=== PATIENT | male | born 1980 | race African-American/Black ===

== ENCOUNTER 2024-02-25 20:45 | Emergency (ER) | payer MEDICAID, SELFPAY ==
--- NOTE | 2024-02-25 20:45 | RT.EKG_ITS ---
APPROVED REPORT Exam: Resting ECG Reason for Exam: elevated bp, abd pain Patient Location: E HR:103 bpm ECG Measurements Heart Rate 103 AXIS ID 151 P 22 QRSd 90 QRS 47 QT 344 T 41 QTc 450 Conclusion Sinus tachycardia...rate> 99 Probable left atrial enlargement...P >50mS, <-0.10mV V1
[2024-02-25 20:50] VITALS: BP 146/112; PULSE 112; RESP 16; TEMP 37.4; O2SAT 98
--- NOTE | 2024-02-25 21:00 | DI.RAD_ITS ---
Exam(s) XR CHEST 2V PA LATERAL EXAM: XR CHEST 2V PA LATERAL CLINICAL HISTORY: cough TECHNIQUE: 2D digital imaging was performed. Two views. COMPARISON: No exams were available for comparison FINDINGS: HEART: Normal size. Aorta: Not dilated. PULMONARY VASCULATURE: Normal. MEDIASTINUM: Unremarkable. LUNGS: Clear. PLEURAL SPACE: No pleural effusion or pneumothorax. BONE:Unremarkable for age. SOFT TISSUES: Unremarkable. IMPRESSION: No acute abnormality. DATA REPOSITORY: RADIATION DOSE DELIVERED:
[2024-02-25 21:01] VITALS: RESP 22
--- NOTE | 2024-02-25 21:05 | W.ED.GENAD ---
Discharge Plan Disposition Patient Disposition: Home Condition: Stable Discharge Details Chief Complaint: GenMedical Clinical Impression: Insomnia, Nausea, Hyponatremia ED Provider: Karel Cleveland Home Meds and New Rx's Prescriptions: No Action No Known Home Meds Discharge Instructions Additional Instructions: Your sodium level is low from drinking beer frequently and also not have enough salt in your diet Limit alcohol use to 2 drinks daily and also try to increase your dietary intake of salt. I placed on a follow-up list to try and see your primary care provider soon as possible. Can also try calling local clinics to try to get a primary care provider If you feel more ill have persistent vomiting or severe weakness return to the emergency department for reevaluation HPI General Mode of arrival: ambulatory. Date/Time Provider Initiated Documentation: 02/25/24 20:50. Limitations to Documentation: no limitations. Information obtained by: patient. History of Present Illness 43 year old M presents to the emergency department with the chief complaint of Nasal congestion, described as moderate, Patient started experiencing this year(s) (3) and it has been constant. No relieving factors improve symptom(s), No exacerbating factors reported . Patient notes cough and nausea/vomiting; denies chest pain, fever/chills and shortness of breath. Patient did receive the following treatments prior to arrival, none Related Data Home Medications ?Medication ?Instructions ?Recorded ?Confirmed Unknown [No Known Home Meds] 02/25/24 02/25/24 Allergies Allergy/AdvReac Type Severity Reaction Status Date / Time No Known Allergies Allergy Unverified 02/25/24 21:12 General Stated Complaint: GenMedical DEEPA: 3 Review of Systems All systems reviewed & are unremarkable except as noted in HPI and below Constitutional Constitutional: Denies chills, Reports fatigue and Denies fever(s) Cardiovascular Cardiovascular: Denies chest pain and Denies dyspnea Respiratory Respiratory: Reports cough and Denies dyspnea Gastrointestinal Gastrointestinal: Denies abdominal pain and Reports nausea Endocrine Endocrine: Reports fatigue Exam Const General: no acute distress Orientation: alert [facility] [place] Head: normal to inspection Ears: external ears normal General nose exam: external nose normal Mouth: moist mucous membranes Eyes General: appearance normal, both eyes and all related structures Neck Neck: normal visual inspection Resp Effort & Inspection: normal respiratory effort and able to speak in complete sentences Auscultation: clear to auscultation bilaterally Cardio Rate: regular rate Rhythm: regular rhythm Heart Sounds: no murmurs GI Palpation: soft and nontender Skin General skin exam: no rashes or lesions noted Neuro General: patient alert and patient oriented x3 Extrem General: normal to inspection Psych Mental Status: mental status grossly normal Course Vital Signs Vital signs: Vital Signs Temperature 37.4 C 02/25/24 20:50 Pulse 112 H 02/25/24 20:50 Respiratory Rate 16 02/25/24 20:50 Blood Pressure 146/112 H 02/25/24 20:50 Pulse Oximetry 98 02/25/24 20:50 Temperature 37.4 C 02/25/24 20:50 Temperature Source Tympanic 02/25/24 20:50 Pulse 112 H 02/25/24 20:50 Respiratory Rate 16 02/25/24 20:50 Blood Pressure 146/112 H 02/25/24 20:50 Blood Pressure Position Supine 02/25/24 20:50 Pulse Oximetry 98 02/25/24 20:50 Oxygen Delivery Method Room Air 02/25/24 20:50 Oxygen Flow Rate 0 02/25/24 20:50 Pain Level 0 02/25/24 20:50 Medical Decision Making 33-year-old male who recently moved to the area and has a chronic history of smoking and alcohol abuse, comes in with complaints of years of difficulty sleeping, chronic fatigue and feeling like he always has to cough or clear his throat. Is unclear what brought him to the hospital today as he says these are all chronic issues. He denies any abdominal pain, he does know he had chronic nausea as well. Denies any chest pain or difficulty breathing, no fevers, no headaches. He is alert and oriented on arrival speaking clearly. He has clear lung sounds a soft nontender abdomen. No focal neurological deficits. I am unsure why the patient came here tonight to be evaluated the symptoms been going on for 2 years but given his complaints of nausea and fatigue and his cough will check a CBC and CMP along with alcohol level as he does state he has been drinking today. I suspect his insomnia and other symptoms could be due to his alcohol abuse. I suspect his cough could be a smoker's cough but will get chest x-ray to evaluate for possible infiltrate Patient feels better, labs show a sodium of 122 he notes that he drinks beer pretty much daily suspect beer potomania. For admission but he declines, I did recommend that he strongly refrain from drinking if he can or limit his alcohol to 2 drinks daily, I also recommended increasing his dietary salt intake. He will follow-up with his primary care provider and return precautions given Differential Diagnosis Differential Diagnosis: Alcohol abuse, electrolyte abnormality, smoker's cough Imaging Data Radiologic Study: Attestation: I personally reviewed and interpreted this imaging study as follows: Imaging: CT Scan My impression: no acute findings Lab Data Lab results reviewed: Yes I reviewed the patient's lab results. ECG Data Attestation: I personally reviewed and interpreted this ECG (s) as follows: Prior ECG tracings: not available for review Interpretation: sinus tachycardia rate of 103 pr 151 no stemi Quality:SDOH Health Related Social Needs: No Data to Display PFSH All Active Problems (Updated 02/25/24 @ 22:01 by Karel Cleveland MD) Hyponatremia (Acute) Nausea (Acute) Insomnia (Acute) Social History Smoking/Tobacco Use Status: Current every day Tobacco Type: cigarettes Smoking risk assessment performed?: Yes Alcohol Intake: current Alcohol Intake frequency: 3 or more drinks per day Alcohol type: beer Drug use: Socially Substance use type: marijuana Housing: apartment Do you feel safe at home: Yes Do you feel safe in your relationship?: Yes
[2024-02-25 21:12] LABS: BE (Venous) -1 mmol/L (-2-3); HCO3 (Venous) 24 mmol/L (23-28); O2 Sat (Venous) 92 %; TCO2 (Venous) 21 mmol/L (24-29); pCO2 (Venous) 38 mmHg (41-51); pH (Venous) 7.41 (7.31-7.41); pO2 (Venous) 63 mmHg
[2024-02-25] MEDS: Normal Saline 1,000 ML 1000 ML IV (21:16)
[2024-02-25] MEDS: Droperidol 5 MG/2 ML VIAL 2.5 MG IVP (21:17)
[2024-02-25 21:30] LABS: PTT Activated 25.2 sec (23.6-32.8); Prothrombin Time 9.8 sec (9.1-11.1)
[2024-02-25 21:32] LABS: ALT 165 U/L (16-63); AST 189 U/L (15-37); Alkaline Phosphatase 105 U/L (46-116); Anion Gap 12.4 mmol/L (3-11); BUN 2 mg/dL (7-18); Bilirubin, Direct 0.5 mg/dL (0.0-0.2); Bilirubin, Total 0.98 mg/dL (0.2-1.0); CO2 25.6 mmol/L (21.0-32.0); CREATININE 0.7 mg/dL (0.70-1.30); Chloride 84 mmol/L (98-107); ETHANOL BLOOD 59.8 mg/dL (<10); Glucose 88 mg/dL (74-106); Lipase 37 U/L (16-77); Magnesium 1.8 mg/dL (1.8-2.4); Potassium 3.6 mmol/L (3.5-5.1); Total Protein 7.4 g/dL (6.4-8.2)
[2024-02-25 21:35] LABS: Sodium 122 mmol/L (136-145)
[2024-02-25 21:50] LABS: COVID-19 PCR Negative (Negative); Influenza A PCR Negative (Negative); Influenza B PCR Negative (Negative); RSV PCR Negative (Negative)
[2024-02-25 21:51] LABS: Source Nasopharynx
[2024-02-25 21:57] LABS: Bilirubin Negative (Negative); Blood Negative (Negative); Clarity Clear (Clear); Glucose Negative (Negative); Ketones Negative (Negative); Leukocyte Esterase Negative (Negative); Nitrite Negative (Negative); Specific Gravity <= 1.005 (1.005-1.025); Urobilinogen 0.2 mg/dL (Up to 0.2); pH 6.5 (5-8)
[2024-02-25 22:08] LABS: Eosinophils % 2.4 %; Lymphocytes % 29.4 %; MCH 33.7 pg (27.0-33.0); MCHC 36.8 % (32.0-36.0); MCV 92 fL (80-95); Monocytes % 10.6 %; Neutrophils % 57.6 %; RDW 11.9 % (11.8-14.1); RDW-SD 39.6 fL
[2024-02-25 22:09] LABS: Absolute Lymphocyte Count 1.25 10^3/uL (1.2-3.4); Absolute Monocyte Count 0.45 10^3/uL (0.1-0.8); RBC 4.15 10^6/uL (4.36-5.78); WBC 4.25 10^3/uL (4.4-10.8)
[2024-02-25 22:10] LABS: Platelet Count 175 10^3/uL (130-400)
[2024-02-25 22:12] LABS: Absolute Neutrophil Count 2.45 10^3/uL (1.2-6.7)
--- NOTE | 2024-02-25 22:32 | DI.VRAD_ITS ---
PROCEDURE INFORMATION: Exam: XR Chest Exam date and time: 02/25/2024 9:36 PM Age: 43 years old Clinical indication: Cough TECHNIQUE: Imaging protocol: Radiologic exam of the chest. Views: 2 views. COMPARISON: No relevant prior studies available. FINDINGS: Lungs: No acute lung infiltrates. No edema. Pleural spaces: No pleural effusion. Heart/Mediastinum: Normal heart size. No mediastinal widening. Bones/joints: Degenerative thoracic spine and mild scoliosis features. IMPRESSION: 1. No acute infiltrates, edema, or pleural change. 2. Thoracic spine degenerative features and scoliosis. Dictated and Authenticated by: Get Cooney MD. Ordering:VAL Vinson MD
--- NOTE | 2024-02-25 23:02 | NUR.NOTE ---
Referral to Care Management. Patient needs to establish pcp routinely.Nursing Note:
== END 2024-02-25 22:07 | disposition home or self-care (01) ==
LOC: ER 22:29
PROVIDERS: Emergency Provider Emergency Medicine
DX: G47.09 Other insomnia (principal); R11.0 Nausea; E87.1 Hypo-osmolality and hyponatremia; F10.10 Alcohol abuse, uncomplicated; F17.210 Nicotine dependence, cigarettes, uncomplicated; Y90.2 Blood alcohol level of 40-59 mg/100 ml
CPT/HCPCS: 80053; 82805; 83690; 87637; 93005; 99284; 71046; 80320; 81003; 82248; 83735; 85025; 85610; 85730; 93010; 99283; J1790

== ENCOUNTER 2024-02-27 21:20 | Observation (INO) | payer MEDICAID, SELFPAY ==
[2024-02-27] VITALS (24 sets, daily range): BP systolic 91–144; BP diastolic 67–91; PULSE 75–102; RESP 10–19; TEMP 36.7; O2SAT 100
--- NOTE | 2024-02-27 21:15 | RT.EKG_ITS ---
APPROVED REPORT Exam: Resting ECG Reason for Exam: dyspnea Patient Location: E HR:72 bpm ECG Measurements Heart Rate 72 AXIS AL 175 P 54 QRSd 92 QRS 16 QT 428 T 19 QTc 470 Conclusion Sinus rhythm...normal P axis, V-rate 60- 99
--- NOTE | 2024-02-27 21:32 | W.ED.GENAD ---
Discharge Plan Disposition Patient Disposition: Admit to [facility] Condition: Poor Discharge Details Chief Complaint: RespSymp Clinical Impression: Hyponatremia Primary Care Provider: None,None ED Provider: Karel Cleveland Home Meds and New Rx's Prescriptions: No Action No Known Home Meds HPI General Mode of arrival: EMS. Date/Time Provider Initiated Documentation: 02/27/24 21:31. Limitations to Documentation: no limitations. Information obtained by: patient. History of Present Illness 43 year old M presents to the emergency department with the chief complaint of nausea, described as mild, Patient started experiencing this day(s) (4) and it has been intermittent. No relieving factors improve symptom(s), No exacerbating factors reported . Patient notes denies chest pain. Related Data Home Medications ?Medication ?Instructions ?Recorded ?Confirmed Unknown [No Known Home Meds] 02/25/24 02/27/24 Allergies Allergy/AdvReac Type Severity Reaction Status Date / Time No Known Allergies Allergy Unverified 02/27/24 21:47 General DEEPA: 3 Review of Systems All systems reviewed & are unremarkable except as noted in HPI and below Constitutional Constitutional: Denies chills, Denies fever(s) and Denies weakness Cardiovascular Cardiovascular: Denies chest pain and Reports dyspnea Respiratory Respiratory: Denies cough and Reports dyspnea Gastrointestinal Gastrointestinal: Denies abdominal pain, Denies nausea and Denies vomiting Integumentary/Breasts Skin/Breast: Denies rash Neurologic Neurologic: Denies weakness Exam Const General: no acute distress and anxious Orientation: alert HENMT Head: normal to inspection Ears: external ears normal General nose exam: external nose normal Mouth: moist mucous membranes Eyes General: appearance normal, both eyes and all related structures Neck Neck: normal visual inspection Resp Effort & Inspection: normal respiratory effort and able to speak in complete sentences Auscultation: clear to auscultation bilaterally Cardio Jugular venous pressure: no JVD Rate: regular rate Heart Sounds: no murmurs GI Palpation: soft and nontender Skin General skin exam: no rashes or lesions noted Neuro General: patient alert and patient oriented x3 Extrem General: normal to inspection Psych Mental Status: mental status grossly normal Medical Decision Making 43-year-old male with a history of alcohol abuse and drinks beer daily, comes in with continued nausea and states he feels like he is short of breath and anxious. He denies any fevers, cough, chest pain, abdominal pain. He was seen 2 days ago and had a low sodium likely due to beer intake. He is currently appears very anxious, hyperventilating appearing like he might be having a panic attack. He has clear lung sounds, he is under percent on room air, soft nontender abdomen. Suspect part of his symptoms could be from low sodium and alcohol abuse, will check a CBC, CMP, UA, treat symptoms with Ativan and reassess. Patient stable, sodium is 121 which I suspect is from beer but given how low it is will discuss with hospitalist about admission. Differential Diagnosis Differential Diagnosis: Anxiety, alcohol abuse, hyponatremia Medical Records Medical records reviewed: Yes I reviewed the patient's medical records. Lab Data Lab results reviewed: Yes I reviewed the patient's lab results. ECG Data Attestation: I personally reviewed and interpreted this ECG (s) as follows: Prior ECG tracings: available for review Interpretation: Sinus rhythm, rate of 76, right bundle branch block, no STEMI Quality:SDOH Health Related Social Needs: No Data to Display [facility] All Active Problems (Updated 02/27/24 @ 23:29 by Karel Cleveland MD) Hyponatremia (Acute) Nausea (Acute) Insomnia (Acute) Social History Smoking/Tobacco Use Status: Current every day Tobacco Type: cigarettes Smoking risk assessment performed?: Yes Alcohol Intake: current Alcohol Intake frequency: 3 or more drinks per day Alcohol type: beer Drug use: Socially Substance use type: marijuana Housing: apartment Do you feel safe at home: Yes Do you feel safe in your relationship?: Yes
[2024-02-27] MEDS: LORazepam 2 MG/ML VIAL 1 MG IVP (21:50)
[2024-02-27 22:22] LABS: ALT 180 U/L (16-63); AST 250 U/L (15-37); Albumin 3.8 g/dL (3.4-5.0); Alkaline Phosphatase 98 U/L (46-116); Anion Gap 13.9 mmol/L (3-11); BUN 3 mg/dL (7-18); Bilirubin, Total 1.23 mg/dL (0.2-1.0); CO2 23.1 mmol/L (21.0-32.0); CREATININE 0.9 mg/dL (0.70-1.30); Calcium 8.8 mg/dL (8.5-10.1); Chloride 84 mmol/L (98-107); Estimated GFR 107.33 (mL/min/1.73m2); Glucose 135 mg/dL (74-106); Magnesium 1.6 mg/dL (1.8-2.4); PHOSPHORUS 2.5 mg/dL (2.6-4.7); Potassium 3.3 mmol/L (3.5-5.1); TSH (W/Ref FT4) 1.91 uIU/mL (0.36-3.74); Total Protein 6.6 g/dL (6.4-8.2)
[2024-02-27 22:24] LABS: ETHANOL BLOOD < 3.0 mg/dL (<10)
[2024-02-27 22:27] LABS: Sodium 121 mmol/L (136-145)
[2024-02-27 22:33] LABS: Lymphocytes % 27.9 %; MCH 33.3 pg (27.0-33.0); MCHC 36.9 % (32.0-36.0); MCV 90 fL (80-95); MPV 8.8 fL (8.0-11.0); Monocytes % 11.5 %; Neutrophils % 60.6 %; RDW 11.3 % (11.8-14.1); RDW-SD 37.3 fL
[2024-02-27 22:34] LABS: Absolute Lymphocyte Count 0.85 10^3/uL (1.2-3.4); Absolute Monocyte Count 0.35 10^3/uL (0.1-0.8); WBC 3.05 10^3/uL (4.4-10.8)
[2024-02-27 22:35] LABS: HCT 32.5 % (40.0-50.0)
[2024-02-27 22:36] LABS: Absolute Neutrophil Count 1.85 10^3/uL (1.2-6.7); Platelet Count 145 10^3/uL (130-400)
[2024-02-27] MEDS: Normal Saline 250 ML IV (23:03)
--- NOTE | 2024-02-27 23:23 | HPE_ITS ---
Date of service: 02/27/24 Time of Service: 23:23 Assessment and Plan Assessment and plan (1) Alcohol abuse: Status: Chronic Assessment and plan: I believe that much of the patient's lab findings (and perhaps chronic complaints too) are likely a consequence of chronic alcohol use (notably we have no priors as evidently he does not have a doctor). Whether there is an acute on chronic situation, perhaps a viral illness, is undetermined at present. 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 W/u at that time of note for Na 122. Admission advised but was declined. Patient returns today with now a complaint of RILEY, fever and nausea, thinks he has the flu. Continues to drink -- 6-8 beers per day -- last drink few hours prior. 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 Patient appeared somewhat anxious and was given Ativan 1mg. Started NS fluids. Viral triple swab is pending. I was asked to evaluate for admission. At present time patient is asking to have oxygen, despite O2 sats steadily 100% and denying SOB. He also is asking to eat despite reporting nausea. Review of Systems Narrative: per HPI PFSH All Active Problems Alcohol abuse (Chronic) Hyponatremia (Acute) Nausea (Acute) Insomnia (Acute) Social History Smoking/Tobacco Use Status: Current every day Tobacco Type: cigarettes Smoking risk assessment performed?: Yes Alcohol Intake: current Alcohol Intake frequency: 3 or more drinks per day Alcohol type: beer Drug use: Socially Substance use type: marijuana Housing: apartment Do you feel safe at home: Yes Do you feel safe in your relationship?: Yes Meds Allergies and Home Medications Allergies Allergy/AdvReac Type Severity Reaction Status Date / Time No Known Allergies Allergy Unverified 02/27/24 21:47 Home Medications ?Medication ?Instructions ?Recorded ?Confirmed ?Type Unknown [No Known Home Meds] 02/25/24 02/27/24 History Exam Narrative Exam Narrative: 118/91, 82, 36.7, 16, 100% RA. HEENT atraumatic; neck supple; lungs clear; heart RRR; abdomen soft and NT w/o HSM; extremities w/o edema; neuro Ox3, moves all 4s Results Labs 02/27/24 21:38 02/27/24 21:38 Labs: Laboratory Results - last 24 hr 02/27/24 21:38 WBC 3.05 L RBC 3.60 L Hgb 12.0 L D Hct 32.5 L MCV 90 MCH 33.3 H MCHC 36.9 H RDW 11.3 L Plt Count 145 MPV 8.8 Immature Gran % 0.0 Neutrophils % 60.6 Lymphocytes % 27.9 Monocytes % 11.5 Eosinophils % 0.0 Basophils % 0.0 Nucleated RBC % 0.0 Absolute Neutrophils 1.85 Absolute Lymphocytes 0.85 L Absolute Monocytes 0.35 Absolute Eosinophils 0.00 Absolute Basophils 0.00 Sodium 121 L* Potassium 3.3 L Chloride 84 L Carbon Dioxide 23.1 Anion Gap 13.9 H BUN 3 L Creatinine 0.9 Est GFR (CKD-EPI 2020) 107.33 Glucose 135 H Calcium 8.8 Phosphorus 2.5 L Magnesium 1.6 L Total Bilirubin 1.23 H AST 250 H ALT 180 H Alkaline Phosphatase 98 Total Protein 6.6 Albumin 3.8 TSH 1.91 Ethyl Alcohol < 3.0 Last Vital Signs Temp 36.7 C 02/27/24 21:39 Pulse 82 02/27/24 21:46 Resp 16 02/27/24 21:50 BP 118/91 H 02/27/24 21:46 Pulse Ox 100 02/27/24 21:39 Time Spent Time spent with Patient: 55-74 minutes Time was spent: preparing to see the patient(eg.review tests), obtaining and/or reviewing separately otained hiistory, ordering medications,tests, procedures, referring, communicating with other health adult day care worker and indepentently interpreting results
[2024-02-28] VITALS (28 sets, daily range): BP systolic 74–137; BP diastolic 49–105; PULSE 71–88; RESP 10–19; TEMP 36.2–37.2; O2SAT 99–100
[2024-02-28] LABS: Lab Add On Test DONE
[2024-02-28] MEDS: MAGNESIUM SULFATE 2 GM/50 ML BAG IVINF (00:02)
[2024-02-28 00:14] LABS: COVID-19 PCR Negative (Negative); Influenza A PCR Negative (Negative); Influenza B PCR Negative (Negative); RSV PCR Negative (Negative); Source Nasopharynx
[2024-02-28 00:42] LABS: Folate 11.9 ng/mL (8.6-20.0); Vitamin B12 1680 pg/mL (193-986)
[2024-02-28 00:51] LABS: Reticulocyte 1.3 % (0.5-2.4)
--- NOTE | 2024-02-28 01:51 | W.PCEDHO ---
Registration Status: Primary Language: Preferred Language: ED Information & Data Chief Complaint RespSymp 02/27/24 21:44 Chief Complaint RespSymp 02/27/24 21:39 Triage Note pt states his breathing is 02/27/24 21:39 slowing down and he stopped breathing Most Recent Vital Signs Temperature 36.7 C 02/27/24 21:39 Temperature Source Oral 02/27/24 21:39 Pulse 76 02/28/24 01:32 Pulse 74 02/28/24 01:40 Respiratory Rate 14 02/28/24 01:40 Respiratory Effort Normal, Non-Labored 02/27/24 21:55 Respiratory Depth Normal 02/27/24 21:55 Blood Pressure 83/52 L 02/28/24 01:32 Blood Pressure Mean 60 02/28/24 01:32 Blood Pressure Position Supine 02/27/24 21:39 Pulse Oximetry 100 02/27/24 21:39 Oxygen Delivery Method Room Air 02/27/24 21:39 Oxygen Flow Rate 0 02/27/24 21:39 Allergies No Known Allergies Allergy (Unverified 02/27/24 21:47) Precautions Isolation Standard precaution 02/27/24 21:44 Active Medications Generic Name Dose Route Start Last Admin Trade Name Andrewq PRN Reason Stop Dose Admin Magnesium Sulfate 2 gm in 50 mls @ 25 mls/hr 02/27/24 23:47 02/28/24 01:46 IVINF 02/28/24 01:46 Infused NOW ONE Infusion IV IV Catheter Type [Left Peripheral IV Antecubital] IV Catheter Gauge [Left 18 Antecubital] Diet Orders Category Date Time Status Regular/Normal [DIET] Nutrition 02/28/24 Breakfast Active Diagnostics 02/28/24 02/28/24 02/27/24 Range/Units 05:35 00:22 23:24 WBC Pending (4.4-10.8) 10^3/uL RBC Pending (4.36-5.78) 10^6/uL Hgb Pending (13.5-17.5) g/dL Hct Pending (40.0-50.0) % MCV Pending (80-95) fL MCH Pending (27.0-33.0) pg MCHC Pending (32.0-36.0) % RDW Pending (11.8-14.1) % Plt Count Pending (130-400) 10^3/uL MPV Pending (8.0-11.0) fL Reticulocyte % (Auto) (0.5-2.4) % Immature Gran % % Neutrophils % % Lymphocytes % % Monocytes % % Eosinophils % % Basophils % % Nucleated RBC % (0.0-0.3) % Absolute Neutrophils (1.2-6.7) 10^3/uL Absolute Lymphocytes (1.2-3.4) 10^3/uL Absolute Monocytes (0.1-0.8) 10^3/uL Absolute Eosinophils (0.0-0.7) 10^3/uL Absolute Basophils (0.0-0.2) 10^3/uL Sodium Pending (136-145) mmol/L Potassium Pending (3.5-5.1) mmol/L Chloride Pending (98-107) mmol/L Carbon Dioxide Pending (21.0-32.0) mmol/L Anion Gap Pending (3-11) mmol/L BUN Pending (7-18) mg/dL Creatinine Pending (0.70-1.30) mg/dL Est GFR (CKD-EPI 2020) Pending (mL/min/1.73m2) Glucose Pending (74-106) mg/dL Calcium Pending (8.5-10.1) mg/dL Phosphorus (2.6-4.7) mg/dL Magnesium (1.8-2.4) mg/dL Total Bilirubin (0.2-1.0) mg/dL AST Pending (15-37) U/L ALT Pending (16-63) U/L Alkaline Phosphatase (46-116) U/L Total Protein (6.4-8.2) g/dL Albumin (3.4-5.0) g/dL Vitamin B12 (193-986) pg/mL Folate (8.6-20.0) ng/mL TSH (0.36-3.74) uIU/mL Urine Color Pending Urine Clarity Pending Urine pH Pending Ur Specific [place] Pending Urine Protein Pending Urine Ketones Pending Urine Blood Pending Urine Nitrite Pending Urine Bilirubin Pending Urine Urobilinogen Pending Ur Leukocyte Esterase Pending Ur Random Creatinine Pending Ur Random Sodium Pending Urine Glucose Pending Ethyl Alcohol (<10) mg/dL COVID-19 Source Nasopharynx SARS-CoV-2 (PCR) Negative (Negative) Influenza Type A (PCR) Negative (Negative) Influenza Type B (PCR) Negative (Negative) RSV (PCR) Negative (Negative) Add-On Test Request 02/27/24 Range/Units 21:38 WBC 3.05 L (4.4-10.8) 10^3/uL RBC 3.60 L (4.36-5.78) 10^6/uL Hgb 12.0 L D (13.5-17.5) g/dL Hct 32.5 L (40.0-50.0) % MCV 90 (80-95) fL MCH 33.3 H (27.0-33.0) pg MCHC 36.9 H (32.0-36.0) % RDW 11.3 L (11.8-14.1) % Plt Count 145 (130-400) 10^3/uL MPV 8.8 (8.0-11.0) fL Reticulocyte % (Auto) 1.3 (0.5-2.4) % Immature Gran % 0.0 % Neutrophils % 60.6 % Lymphocytes % 27.9 % Monocytes % 11.5 % Eosinophils % 0.0 % Basophils % 0.0 % Nucleated RBC % 0.0 (0.0-0.3) % Absolute Neutrophils 1.85 (1.2-6.7) 10^3/uL Absolute Lymphocytes 0.85 L (1.2-3.4) 10^3/uL Absolute Monocytes 0.35 (0.1-0.8) 10^3/uL Absolute Eosinophils 0.00 (0.0-0.7) 10^3/uL Absolute Basophils 0.00 (0.0-0.2) 10^3/uL Sodium 121 L* (136-145) mmol/L Potassium 3.3 L (3.5-5.1) mmol/L Chloride 84 L (98-107) mmol/L Carbon Dioxide 23.1 (21.0-32.0) mmol/L Anion Gap 13.9 H (3-11) mmol/L BUN 3 L (7-18) mg/dL Creatinine 0.9 (0.70-1.30) mg/dL Est GFR (CKD-EPI 2020) 107.33 (mL/min/1.73m2) Glucose 135 H (74-106) mg/dL Calcium 8.8 (8.5-10.1) mg/dL Phosphorus 2.5 L (2.6-4.7) mg/dL Magnesium 1.6 L (1.8-2.4) mg/dL Total Bilirubin 1.23 H (0.2-1.0) mg/dL AST 250 H (15-37) U/L ALT 180 H (16-63) U/L Alkaline Phosphatase 98 (46-116) U/L Total Protein 6.6 (6.4-8.2) g/dL Albumin 3.8 (3.4-5.0) g/dL Vitamin B12 1680 H (193-986) pg/mL Folate 11.9 (8.6-20.0) ng/mL TSH 1.91 (0.36-3.74) uIU/mL Urine Color Urine Clarity Urine pH Ur Specific [place] Urine Protein Urine Ketones Urine Blood Urine Nitrite Urine Bilirubin Urine Urobilinogen Ur Leukocyte Esterase Ur Random Creatinine Ur Random Sodium Urine Glucose Ethyl Alcohol < 3.0 (<10) mg/dL COVID-19 Source SARS-CoV-2 (PCR) (Negative) Influenza Type A (PCR) (Negative) Influenza Type B (PCR) (Negative) RSV (PCR) (Negative) Add-On Test Request DONE Intake and Output - 24 Hour Total 02/27/24 21:11 thru 02/28/24 01:46 Intake Total 300 Balance 300 Weight 74.6 kg Intake: IV 300 Falls Risk Assessment History of Falls No History 02/27/24 21:45 Contributing Factors No Factors 02/27/24 21:45 Ambulatory Aids Independent 02/27/24 21:45 Tubes/Lines None 02/27/24 21:45 Gait Evaluation No gait disturbance 02/27/24 21:45 Fall Total Score 0 02/27/24 21:45 Level of Risk Standard/Low Risk 02/27/24 21:45 Problems Alcohol abuse (Chronic) v v v v v v v v v Sending and/or Receiving Nurses: Please use comment section below to note any information pertinent to the patient hand-off not included above. Information / Comments: Patient came in feeling short of breath with anxiety during the day. Nausea, vomiting and weakness. patient was in ED yesterday with 122 sodium, 121 today on return. Treated with 250ml of NS over an hour. 1 mg of Ativan patient has 18 gauge in left AC placed by EMS. Patient is ambulatory Patient was placed on oyxgen 1/2 L/min for patient comfort. Report received from: LARISSA Barrett
[2024-02-28] MEDS: POTASSIUM CHLORIDE/0.9% NACL 1,000 ML 80 MEQ IV (03:32)
[2024-02-28] MEDS: Normal Saline Flush 10 ML SYR IVP ×2 (03:33→20:21)
[2024-02-28 07:10] LABS: HCT 36.2 % (40.0-50.0); HGB 13.5 g/dL (13.5-17.5); MCH 34.4 pg (27.0-33.0); MCHC 37.3 % (32.0-36.0); MCV 92 fL (80-95); MPV 8.9 fL (8.0-11.0); Platelet Count 163 10^3/uL (130-400); RBC 3.93 10^6/uL (4.36-5.78); RDW 10.9 % (11.8-14.1); RDW-SD 37.6 fL; WBC 3.35 10^3/uL (4.4-10.8)
[2024-02-28 07:26] LABS: ALT 166 U/L (16-63); AST 212 U/L (15-37); Anion Gap 7.5 mmol/L (3-11); BUN 3 mg/dL (7-18); CO2 28.5 mmol/L (21.0-32.0); CREATININE 0.9 mg/dL (0.70-1.30); Calcium 8.9 mg/dL (8.5-10.1); Chloride 89 mmol/L (98-107); Estimated GFR 107.33 (mL/min/1.73m2); Glucose 99 mg/dL (74-106); Potassium 3.9 mmol/L (3.5-5.1); Sodium 125 mmol/L (136-145)
--- NOTE | 2024-02-28 08:50 | PDOC.CMIN ---
Date of service: 02/28/24 Time of Service: 08:50 Care Management Initial Assmt Initial Assessment Reason for Hospitalization: alcohol abuse Functional Status/Living Situation Town of Residence: [place] Instrumental Activities of Daily Living (ADLs): Independent Medications Medication Management: No Issues/Barriers identified Advance Directives Advance Directives: Do you have an Advance Directive: AD On File at [facility]: N 02/25/24 21:38 Date Asked 02/27/24 02/27/24 21:31 AD Date Reviewed COLST On File at [facility] No 02/25/24 21:38 COLST Date Scanned Code Status Resuscitation Status Full Code Portal Pt does not currently have a portal and education provided: No Insurance Coverage/Financial Issues Insurance: Medicxaid Care Team Visit Care Team Role Provider Type None None Primary Care Provider MD [facility] STAFF PHYSICIAN Karel Cleveland MD Emergency Provider [facility] STAFF PHYSICIAN Coy Cook MD Admit Provider [facility] STAFF PHYSICIAN Attending Provider [facility] All Active Problems Alcohol abuse (Chronic) Hyponatremia (Acute) Nausea (Acute) Insomnia (Acute) Social History Smoking/Tobacco Use Status: Current every day Tobacco Type: cigarettes Smoking risk assessment performed?: Yes Alcohol Intake: current Alcohol Intake frequency: 3 or more drinks per day Alcohol type: beer Drug use: Socially Substance use type: marijuana Housing: apartment Do you feel safe at home: Yes Do you feel safe in your relationship?: Yes SDOH(Care Management) Screening Will the Patient Participate in the Screening?: Yes Do you worry about having a steady place to live?: yes In the past 12 months, have you had to go without electric, gas, oil or water in your home?: yes Have you or anyone in your house had to go without enough food to eat?: no Has lack of transportation kept you from medical appointments or from doing things needed for daily living?: yes Has anyone in your support network made you feel unsafe for any reason?: no Health Related Social Needs Health related social needs: housing instability, housed, with risk of homelessness(Z59.811), transportation insecurity(Z59.82) and material hardship(utilities)(Z59.87)
--- NOTE | 2024-02-28 13:32 | W.PM.PROGNOT ---
Date of Service Date of service: 02/28/24 Time of Service: 13:32 Assessment and Plan Assessment and plan (1) Chronic hyponatremia: Status: Acute Assessment and plan: -Na 122 in ED on 02/24, 121 on admission PM 02/26 -has been on 80ml/hr NS since admission with improvement in Na up to 125 in AM and 128 at 15:30 -will discontinue NS and f/u AM BMP (2) Alcohol abuse: Status: Chronic Assessment and plan: -no history of withdrawal, last drink yesterday afternoon -received a few doses of scheduled librium on admission which has since been discontinued along with PRN ativan -will continue to monitor for withdrawal symptoms (3) HTN (hypertension): Status: Chronic Assessment and plan: -patient states that he had been BP meds, but does not know what they are and has no been taking them for a prolonged period of time -BPs since admission have been WNL -will monitor and start antihypertensives if needed Subjective Subjective Interval history since last seen: Patient states that he feels better this morning, though reports non-sepcif shaking and chills that occured twice overnight. He also states that prior to coming to the hospital he has had multiple self-resolving episodes of my breathing stopping, like when someone gets a bee sting and my throat closes. Exam Narrative Exam Narrative: well appearing anxious gentleman laying in bed in no acute distress, AOx4, heart RRR, lungs CTAB, abdomen soft, non-tender, non-distended Objective Last Vital Signs Temp 97.5 F L 02/28/24 07:44 Pulse 71 02/28/24 07:44 Resp 18 02/28/24 07:44 BP 137/105 H 02/28/24 07:44 Pulse Ox 100 02/28/24 07:44 Laboratory Results - last 24 hr 02/27/24 02/27/24 02/28/24 21:38 23:24 06:35 WBC 3.05 L 3.35 L RBC 3.60 L 3.93 L Hgb 12.0 L D 13.5 Hct 32.5 L 36.2 L MCV 90 92 MCH 33.3 H 34.4 H MCHC 36.9 H 37.3 H RDW 11.3 L 10.9 L Plt Count 145 163 MPV 8.8 8.9 Reticulocyte % (Auto) 1.3 Immature Gran % 0.0 Neutrophils % 60.6 Lymphocytes % 27.9 Monocytes % 11.5 Eosinophils % 0.0 Basophils % 0.0 Nucleated RBC % 0.0 Absolute Neutrophils 1.85 Absolute Lymphocytes 0.85 L Absolute Monocytes 0.35 Absolute Eosinophils 0.00 Absolute Basophils 0.00 Sodium 121 L* 125 L Potassium 3.3 L 3.9 Chloride 84 L 89 L Carbon Dioxide 23.1 28.5 Anion Gap 13.9 H 7.5 BUN 3 L 3 L Creatinine 0.9 0.9 Est GFR (CKD-EPI 2020) 107.33 107.33 Glucose 135 H 99 Calcium 8.8 8.9 Phosphorus 2.5 L Magnesium 1.6 L Total Bilirubin 1.23 H AST 250 H 212 H ALT 180 H 166 H Alkaline Phosphatase 98 Total Protein 6.6 Albumin 3.8 Vitamin B12 1680 H Folate 11.9 TSH 1.91 Ethyl Alcohol < 3.0 COVID-19 Source Nasopharynx SARS-CoV-2 (PCR) Negative Influenza Type A (PCR) Negative Influenza Type B (PCR) Negative RSV (PCR) Negative Add-On Test Request DONE PAWSS Have you Been Recently Intoxicated or Drunk Within the Last 30 days?: Yes Have you Ever Experienced Previous Episodes of Alcohol Withdrawal?: No Have you ever Experienced Withdrawal Seizures?: No Have you ever Experienced Delirium Tremens(DT)s?: Unable to Obtain Have you ever undergone Alcohol Rehabilitation Treatment (i.e, inpt ot outpatient treatment programs)?: Yes Have you ever Experienced Blackouts?: Yes Have you ever Combined Alcohol with other Downers within the last 90 days?: Unable to Obtain Positive Blood Alcohol level on Presentation? [PCS.BAL]: Unable to Obtain Evidence of Increased Autonomic Activity (i.e. HR>120, tremor, sweating, agitation, nausea)?: No Result: 3 Time Spent with Patient Time Spent with Patient: >50 minutes Time was spent: preparing to see the patient(eg.review tests), obtaining and/or reviewing separately otained hiistory, ordering medications,tests, procedures, referring, communicating with other health point of care technician, indepentently interpreting results, counseling the patient and care coordination
[2024-02-28 13:58] LABS: Anion Gap 9.3 mmol/L (3-11); BUN 3 mg/dL (7-18); CO2 24.7 mmol/L (21.0-32.0); CREATININE 0.8 mg/dL (0.70-1.30); Calcium 8.8 mg/dL (8.5-10.1); Chloride 94 mmol/L (98-107); Estimated GFR 111.22 (mL/min/1.73m2); Glucose 80 mg/dL (74-106); Potassium 4.2 mmol/L (3.5-5.1); Sodium 128 mmol/L (136-145)
--- NOTE | 2024-02-28 16:21 | PDOC.CMPRO ---
Date of service: 02/28/24 Time of Service: 16:22 Care Management Progress Note Progress Note Text Progress Note Text: Be was admitted yesterday with an NSTEMI with a plan to transfer [place] [facility] [place] bed becomes available. He was able to transfer today and will likely have a cardiac catheterization later today. Transport will be via EMS coordinated by the nursing shirt ironer supervisor. SDOH(Care Management) Screening Will the Patient Participate in the Screening?: Yes Do you worry about having a steady place to live?: yes In the past 12 months, have you had to go without electric, gas, oil or water in your home?: yes Have you or anyone in your house had to go without enough food to eat?: no Has lack of transportation kept you from medical appointments or from doing things needed for daily living?: yes Has anyone in your support network made you feel unsafe for any reason?: no Health Related Social Needs Health related social needs: housing instability, housed, with risk of homelessness(Z59.811), transportation insecurity(Z59.82) and material hardship(utilities)(Z59.87)
--- NOTE | 2024-02-28 16:36 | INITIAL_ITS ---
Date of service: 02/28/24 Time of Service: 16:36 Care Management Initial Assmt Initial Assessment Reason for Hospitalization: hyponatremia Functional Status/Living Situation Patient Presentation: El was sitting up in bed talking on the phone with his girlfriend when CM met with him. He did not fully engage and was brief, although polite, in his responses. He shared that he lives in [place] and has a male roommate. El works on and off at the [employer] and is independent with all of his ADLs. He received Food [place] but no other assistance. El has one son who is 4 years old and lives with his grandmother. Town of Residence: [place] Resides with: Other (roommate Lan) Significant Other/Family: Local Employment Status: Employed (works off and on at [employer]) Instrumental Activities of Daily Living (ADLs): Independent Medications Medication Management: No Issues/Barriers identified Advance Directives Advance Directives: Do you have an Advance Directive: AD On File at [facility]: N 02/25/24 21:38 Date Asked 02/27/24 02/27/24 21:31 AD Date Reviewed COLST On File at [facility] No 02/25/24 21:38 COLST Date Scanned Code Status Resuscitation Status Full Code Portal Pt does not currently have a portal and education provided: No Insurance Coverage/Financial Issues Insurance: Medicaid ACO Member: No Care Team Visit Care Team Role Provider Type None None Primary Care Provider [facility] STAFF PHYSICIAN Karel Cleveland MD Emergency Provider [facility] STAFF PHYSICIAN Coy Cook MD Admit Provider [facility] STAFF PHYSICIAN Attending Provider Discharge Potential Discharge Needs: PCP F/U Appt (will need to establish with PCP) Anticipated Barriers to Discharge: None Identified Patient/Family Education Needs: Review discharge instructions, discuss Ask Me Three Transportation: RCT Plan: Anticipate El will be discharged with no new services when medically cleared. He will follow up with the on-call provider assigned at the time of discharge and transport via RCT coordinated by CM. CM will follow and continue to assess for discharge needs. PFSH All Active Problems (Updated 02/28/24 @ 13:36 by Kamran Marin MD) HTN (hypertension) (Chronic) Chronic hyponatremia (Acute) Alcohol abuse (Chronic) Hyponatremia (Acute) Nausea (Acute) Insomnia (Acute) Social History Smoking/Tobacco Use Status: Current every day Tobacco Type: cigarettes Smoking risk assessment performed?: Yes Alcohol Intake: current Alcohol Intake frequency: 3 or more drinks per day Alcohol type: beer Drug use: Socially Substance use type: marijuana Housing: apartment Do you feel safe at home: Yes Do you feel safe in your relationship?: Yes SDOH(Care Management) Screening Will the Patient Participate in the Screening?: Yes Do you worry about having a steady place to live?: yes In the past 12 months, have you had to go without electric, gas, oil or water in your home?: yes Have you or anyone in your house had to go without enough food to eat?: no Has lack of transportation kept you from medical appointments or from doing things needed for daily living?: yes Has anyone in your support network made you feel unsafe for any reason?: no Health Related Social Needs Health related social needs: housing instability, housed, with risk of homelessness(Z59.811), transportation insecurity(Z59.82) and material hardship(utilities)(Z59.87)
--- NOTE | 2024-02-28 20:13 | NUR.NOTE ---
Nursing Note: Patient had 4 visitors in his room, the last one arriving at 1940 and had a large backpack. This SCALEMAN went into the patient room at shift change (1899) and no odor of cigarettes was noted. At 1999 this SCALEMAN went back into the patients room and noted a strong odor of cigarettes. Per previous shift, this patient and his visitors had been spoken to about smoking policy with security earlier in the day. LARISSA HARE also notified. Patients visitors did leave at 1999 without difficulty.
[2024-02-28] MEDS: Nicotine 2 MG GUM CH (20:37)
[2024-02-28] MEDS: Acetaminophen 500 MG TAB 1000 MG PO (22:06)
--- NOTE | 2024-02-28 23:17 | NUR.NOTE ---
report received from KIMMIE Parish at 2250:
--- NOTE | 2024-02-29 02:07 | NUR.NOTE ---
Addendum entered by Елена Quiroz 03/01/24 01:18: Charge nurse to notify lab to draw labs early to see if cramping is related to hypomagnesmia and/or hypokalemia. Original Note: Charge nurse LARISSA Santoyo notified of pt's leg pain/cramps. No available PRNS at this time.
--- NOTE | 2024-02-29 03:20 | NUR.NOTE ---
Charge nurse LARISSA Santoyo notified of pt's persistent pain. No available PRNs.
--- NOTE | 2024-02-29 04:52 | NUR.NOTE ---
Charge nurse LARISSA Santoyo notified of pt's persistent leg cramps.
[2024-02-29 05:27] LABS: HGB 13.9 g/dL (13.5-17.5); MCHC 36.6 % (32.0-36.0); MCV 93 fL (80-95); MPV 8.8 fL (8.0-11.0); Platelet Count 182 10^3/uL (130-400); RBC 4.09 10^6/uL (4.36-5.78); RDW 11.4 % (11.8-14.1); RDW-SD 38.9 fL
[2024-02-29 05:38] LABS: BUN 3 mg/dL (7-18); CREATININE 0.7 mg/dL (0.70-1.30); Calcium 8.8 mg/dL (8.5-10.1); Chloride 95 mmol/L (98-107); Glucose 104 mg/dL (74-106); Potassium 3.9 mmol/L (3.5-5.1); Sodium 129 mmol/L (136-145)
[2024-02-29 06:35] LABS: Magnesium 2.1 mg/dL (1.8-2.4)
--- NOTE | 2024-02-29 08:41 | PDOC.CMPRO ---
Date of service: 02/29/24 Time of Service: 08:41 Care Management Progress Note Discharge Potential Discharge Needs: PCP F/U Appt Anticipated Barriers to Discharge: None Identified Patient/Family Education Needs: Review discharge instructions, discuss Ask Me Three Transportation: RCT Plan: Anticipate El will be discharged with no new services when medically cleared. He will follow up with the on-call provider assigned at the time of discharge and transport via RCT coordinated by CM. CM will follow and continue to assess for discharge needs. SDOH(Care Management) Screening Will the Patient Participate in the Screening?: Yes Do you worry about having a steady place to live?: yes In the past 12 months, have you had to go without electric, gas, oil or water in your home?: yes Have you or anyone in your house had to go without enough food to eat?: no Has lack of transportation kept you from medical appointments or from doing things needed for daily living?: yes Has anyone in your support network made you feel unsafe for any reason?: no Health Related Social Needs Health related social needs: housing instability, housed, with risk of homelessness(Z59.811), transportation insecurity(Z59.82) and material hardship(utilities)(Z59.87)
[2024-02-29 09:30] VITALS: BP 141/109; PULSE 80; RESP 16; TEMP 36.4; O2SAT 100
[2024-02-29 09:50] VITALS: BP 140/90
[2024-02-29] MEDS: Acetaminophen 500 MG TAB 1000 MG PO (09:52)
[2024-02-29] MEDS: Normal Saline Flush 10 ML SYR IVP (09:52)
[2024-02-29] MEDS: Nicotine 2 MG GUM CH (09:57)
--- NOTE | 2024-02-29 11:05 | DSE_ITS ---
Date of service: 02/29/24 Time of Service: 11:05 DS: Diagnosis Discharge Diagnosis (1) Chronic hyponatremia: Status: Acute (2) Alcohol abuse: Status: Chronic (3) HTN (hypertension): Status: Chronic Discharge Plan Disposition Patient Disposition: Home Condition: Good Discharge Details Reason For Visit: Alcohol Abuse, Electrolyte Disorders Admit Date/Time: 02/27/24 23:45 Admit Provider: Coy Cook Attending Provider: Coy Cook Primary Care Provider: None,None Hospital Course Hospital Course: Patient presented on the evening of 02/27/2024 after previously being seen in the emergency department on 02/25/2024 presenting with years long nonspecific symptoms. However, on the evening of 02/25/2024 is noted as being hyponatremic likely chronic secondary to alcohol use and his alcohol level was elevated at that time. It is documented by Dr. Cleveland he saw the patient both on the evening of 02/24 and 02/26 that he offered admission on the evening of 02/24 with the patient declined. He did present back to the emergency department on the evening of 02/27/2024 again with hyponatremia and was subsequently admitted. He was given IV fluid rehydration and did have slow improvement of his sodium. Additionally, he did have some hypokalemia which was also improved. Patient continued to complain of chronic nonspecific symptoms, none of which were observed during hospitalization. Upon informing the patient that his acute issues were resolved and that he was stable for discharge, he became severely agitated, and continue to tell conflicting stories as to what brought him to the hospital and what occurred during his emergency room visits. He stated he initially presented because he was found confused, despite documentation stating that he presented due to years long nonspecific symptoms. He also states that he was kicked out on the night of the , and became significantly agitated when presented with the fact that it was documented Dr. Cleveland had offered him admission at that time. When attempting to explain to the patient that I was only informing him of what has been documented he stated you weren't there, how the fuck would you know what happened? Fuck you. Of note, this portion of the conversation with the patient was overheard by hospital security guards who were outside the patient's room, and stated that for staff safety concerns that they would remain present until the patient was off the premises. Home Meds and New Rx's Prescriptions: No Action No Known Home Meds Discharge Instructions Activity:: Activity as Tolerated Equipment/Supplies:: No Equipment Needed Diet:: As Tolerated Discharge Orders Discharge Orders: Discharge Order (Routine); Ordered 02/29/24 Ordered By: Kamran Marin DS: Summary Time Spent with Patient providing and/or coordinating discharge services: Greater than 30 minutes Status at Discharge Functional status at discharge: independent ambulation Overall status at discharge: patient is back to baseline Mental Status: mental status grossly normal Speech and Movement: speech and movement normal Mood: congruent mood Affect: normal affect Quality:SDOH Health Related Social Needs: Health related social needs risk of homeless, transpo insecurity, material hardship Exam Narrative Exam Narrative: unable to examine patient at discharge due to severe agitation as noted above Psych Mental Status: mental status grossly normal Speech and Movement: speech and movement normal Mood: congruent mood Affect: normal affect DS: Data Vitals/I&O Vitals and I&O: Vital Signs Temperature 97.5 F L 02/29/24 09:30 Temperature Source Tympanic 02/29/24 09:30 Pulse 80 02/29/24 09:30 Pulse Rhythm Regular 02/29/24 10:00 Pulse 74 02/28/24 01:40 Respiratory Rate 16 02/29/24 09:30 Respiratory Effort Normal 02/29/24 10:00 Respiratory Depth Normal 02/29/24 10:00 Respiratory Pattern Normal 02/29/24 10:00 Blood Pressure 140/90 02/29/24 09:50 Blood Pressure Mean 60 02/28/24 01:32 Blood Pressure Position Supine 02/27/24 21:39 Pulse Oximetry 100 02/29/24 09:30 Oxygen Delivery Method Room Air 02/29/24 09:30 Oxygen Flow Rate 0 02/29/24 09:30 Pain Level 5 02/29/24 09:52 Intake & Output 02/28/24 02/29/24 02/29/24 17:59 05:59 17:59 Intake Total 865.333 / 865.333 500 / 1365.333 120 / 120 Output Total 2200 / 2200 Balance -1334.667 / -1334.667 500 / -834.667 120 / 120 Intake: IV 865.333 / 865.333 Oral 500 / 500 120 / 120 Output: Urine 2200 / 2200 Other: Urine Color Yellow Urine Appearance Clear Urine Odor Normal Comment patient endorsed dumping his urinal in the toilet, unable to visualize Voiding Methods Urinal Data Completed and Pending Labs on day of discharge: Labs from last 24 hours 02/29/24 02/28/24 02/28/24 05:01 Unknown 13:40 WBC 4.00 L RBC 4.09 L Hgb 13.9 Hct 38.0 L MCV 93 MCH 34.0 H MCHC 36.6 H RDW 11.4 L Plt Count 182 MPV 8.8 Sodium 129 L 128 L Potassium 3.9 4.2 Chloride 95 L 94 L Carbon Dioxide 24.0 24.7 Anion Gap 10.0 9.3 BUN 3 L 3 L Creatinine 0.7 0.8 Est GFR (CKD-EPI 2020) 115.80 111.22 Glucose 104 80 Calcium 8.8 8.8 Magnesium 2.1 Hep Bs Antigen Hep Bs Antibody Hep Bs Antibody, Quant Hep B Core Total Ab Hepatitis C Antibody HIV 1&2 Ag/Ab, 4th Gen Cancelled HIV 1&2 Antibody Rapid Cancelled 02/28/24 13:20 WBC RBC Hgb Hct MCV MCH MCHC RDW Plt Count MPV Sodium Potassium Chloride Carbon Dioxide Anion Gap BUN Creatinine Est GFR (CKD-EPI 2020) Glucose Calcium Magnesium Hep Bs Antigen Pending Hep Bs Antibody Pending Hep Bs Antibody, Quant Pending Hep B Core Total Ab Pending Hepatitis C Antibody Pending HIV 1&2 Ag/Ab, 4th Gen Pending HIV 1&2 Antibody Rapid PFSH All Active Problems (Updated 02/28/24 @ 13:36 by Kamran Marin MD) HTN (hypertension) (Chronic) Chronic hyponatremia (Acute) Alcohol abuse (Chronic) Hyponatremia (Acute) Nausea (Acute) Insomnia (Acute) Social History Smoking/Tobacco Use Status: Current every day Tobacco Type: cigarettes Smoking risk assessment performed?: Yes Alcohol Intake: current Alcohol Intake frequency: 3 or more drinks per day Alcohol type: beer Drug use: Socially Substance use type: marijuana Housing: apartment Do you feel safe at home: Yes Do you feel safe in your relationship?: Yes Time Spent with Patient Time Spent with Patient: <45 minutes Time was spent: preparing to see the patient(eg.review tests), obtaining and/or reviewing separately [facility]istory, ordering medications,tests, procedures, referring, communicating with other health home health aide caregiver, indepentently interpreting results, counseling the patient and care coordination
--- NOTE | 2024-02-29 16:51 | PDOC.CMDIS ---
Date of service: 02/29/24 Time of Service: 16:51 LACE Index Scoring Tool Questions: Length of Stay (in days): 2 Was the patient admitted via the E.D.?: Yes E.D. Visits: 2 Answers: Total Score: 7 Risk of Readmission: Low Risk Care Management Discharge Plan Reason for Hospitalization: hyponatremia Discharge Plan: El will be discharged with no new services. He will follow up with the on-call provider assigned at the time of discharge and transport with friends. Patient/Family Education Needs: Review discharge instructions, discuss Ask Me Three SDOH Health Related Social Needs: Health related social needs risk of homeless, transpo insecurity, material hardship Health related social needs: housing instability, housed, with risk of homelessness(Z59.811), transportation insecurity(Z59.82) and material hardship(utilities)(Z59.87)
[2024-02-29 20:26] LABS: HBs Antibody, Qual Negative (See Note); HBs Antibody, Quant <3.1 mIU/mL (See Note); Hepatitis B Core Antibody Negative (Negative); Hepatitis B surface Ag Negative (Negative); Hepatitis C Ab w Rflx HCV PCR Negative (Negative)
[2024-02-29 20:31] LABS: HIV-1/2 Ag & Ab Screen Negative (Negative)
== END 2024-02-29 12:17 | disposition home or self-care (01) ==
LOC: ER 02-28 01:04 → MS 02-28 02:11
PROVIDERS: Family Medicine; Admitting Provider General Practice; Emergency Provider Emergency Medicine; Visit Provider General Practice
DX: E87.1 Hypo-osmolality and hyponatremia (principal); F10.10 Alcohol abuse, uncomplicated; I10 Essential (primary) hypertension; E83.42 Hypomagnesemia; E87.6 Hypokalemia; K70.10 Alcoholic hepatitis without ascites
CPT/HCPCS: 00123; 36415; 80048; 80053; 85027; 86704; 86706; 86803; 87340; 87389; 87637; 93005; 96361; 96365; 96366; 96375; 99285; 80320; 81003; 82565; 82607; 82746; 83735; 84100; 84300; 84443; 84450; 84460; 85025; 85045; 93010; 99222; 99233; 99238; G0378; J2060; J3475